=== PATIENT | female | born 2000 | race Hispanic/Latino ===

== ENCOUNTER 2021-02-23 19:31 | Emergency (ER) | payer SELFPAY ==
[2021-02-23 20:19] LABS: Bilirubin Neg (Negative); Blood, Urine 50 (Negative); Clarity Slightly Cloudy (Clear); Glucose, Urine (Dipstick) Normal (Negative); Ketone, Urine Negative (Negative); Leukocyte 100 (Negative); Nitrite Negative (Negative); Protein, Urine (Dipstick) 15 mg/dl (Neg-Trace); pH, Urine 6.5 (5.0-9.0)
[2021-02-23 20:22] LABS: Pregnancy Test - Urine (BHCG) Negative (Negative)
[2021-02-23 20:23] LABS: Pregu Control Background? CLEAR/WHITE (CLR/WHITE); Pregu Control Bar Appear? YES (CONTROL BAR)
[2021-02-23] MEDS ORDERED: Acetaminophen 500 MG TAB ONE (20:24)
[2021-02-23] MEDS ORDERED: Ibuprofen 200 MG TAB ONE (20:24)
[2021-02-23 21:10] LABS: Bacteria/HPF 3+ HPF (None Seen)
== END 2021-02-23 20:55 | disposition home or self-care (01) ==
LOC: CSHERS 19:31
DX: R10.31 Right lower quadrant pain (principal); R10.32 Left lower quadrant pain; R10.11 Right upper quadrant pain; R10.12 Left upper quadrant pain
CPT/HCPCS: 81003; 81015; 81025; 87086; 99284

== ENCOUNTER 2022-06-26 17:39 | Emergency (ER) | payer SELFPAY ==
[2022-06-26] MEDS ORDERED: Acetaminophen 500 MG TAB ONE (18:17)
[2022-06-26] MEDS ORDERED: diphenhydrAMINE 50 MG/ML VIAL ONE (18:17)
[2022-06-26] MEDS ORDERED: Metoclopramide HCl 10 MG/2 ML VIAL ONE (18:18)
[2022-06-26] MEDS ORDERED: Ketorolac Tromethamine 30 MG/ML VIAL ONE (18:18)
== END 2022-06-26 20:46 | disposition home or self-care (01) ==
LOC: CSHERS 17:39
DX: R51.9 Headache, unspecified (principal); R42 Dizziness and giddiness
CPT/HCPCS: 96361; 96365; 96375; J1200; J1885; J2765

== ENCOUNTER 2025-07-21 04:21 | Emergency (ER) | payer BC ==
[2025-07-21 04:47] LABS: Pregnancy Test - Urine (BHCG) POSITIVE (Negative); Pregu Control Background? CLEAR/WHITE (CLR/WHITE); Pregu Control Bar Appear? YES (CONTROL BAR)
[2025-07-21 04:48] LABS: Glucose, Urine (Dipstick) Normal (Negative); Leukocyte 500 (Negative); Protein, Urine (Dipstick) 30 mg/dl (Neg-Trace); Specific Gravity, Urine 1.020 (1.005-1.030)
[2025-07-21 04:53] LABS: Bacteria/HPF None Seen HPF (None Seen); CAUTI Indications for Culture Pregnancy; RBC/HPF 0-3 HPF (0-3); WBC/HPF Greater than 50 HPF (0-3)
[2025-07-21 04:54] LABS: Urine Culture Reflex Yes Yes
[2025-07-21] MEDS ORDERED: Ondansetron PF 4 MG/2 ML Vial ONE (04:59)
[2025-07-21 05:08] LABS: Hematocrit 35.7 % (34.9-44.5); Hemoglobin 12.2 g/dL (12.0-15.5); Mean Corpuscular Hemoglobin 29.3 pg (27.0-33.0); Mean Corpuscular Volume 85.6 fL (81.6-98.3); Platelet Count 221 10x3/uL (150-450); Red Blood Cell (RBC) Count 4.17 10x6/uL (3.90-5.03); White Blood Cell (WBC) Count 6.72 10x3/uL (3.5-10.5)
[2025-07-21 05:09] LABS: MDiff Complete? YES; Platelet Adequacy Comment Appears Adequate; RBC Morphology Within Normal Limits
[2025-07-21 05:14] LABS: ALT (SGPT) 9 U/L (Less than 34); AST (SGOT) 14 U/L (11-34); Albumin 4.0 g/dL (3.1-4.5); Alkaline Phosphatase 72 U/L (40-110); Anion Gap 14 mmol/L (10-20); BUN (Urea Nitrogen) 10 mg/dL (7.0-18.7); Bilirubin, Total 0.3 mg/dL (0.3-1.2); Calc. Creatinine Clearance 0 mL/min (70-130); Calcium 9.3 mg/dL (7.8-10.44); Carbon Dioxide 23 mmol/L (22-29); Chloride 105 mmol/L (98-107); Globulin 3.6 g/dL (2.4-3.5); Glucose 94 mg/dL (70-105); Potassium 3.9 mmol/L (3.5-5.1); Sodium 138 mmol/L (136-145)
[2025-07-21] MEDS ORDERED: Acetaminophen 500 MG TAB ONE (05:29)
[2025-07-21] MEDS ORDERED: cefTRIAXone (ROCEPHIN) 1 GM VIAL ONE (05:30)
== END 2025-07-21 06:55 | disposition home or self-care (01) ==
LOC: CSHERS 04:21
DX: O23.41 Unspecified infection of urinary tract in pregnancy, first trimester (principal); N39.0 Urinary tract infection, site not specified; O26.891 Other specified pregnancy related conditions, first trimester; R10.11 Right upper quadrant pain; O21.9 Vomiting of pregnancy, unspecified; Z3A.08 8 weeks gestation of pregnancy
CPT/HCPCS: 36415; 76801; 76856; 80053; 81001; 81025; 83605; 84702; 85025; 87040; 87086; 96361; 96374; 96375; J0696